=== PATIENT | male | born 1945 | race Caucasian/White ===

== ENCOUNTER 2020-11-02 05:34 | Outpatient (CLI) | payer MEDICARE, OTHER ==
[~2020-11-02] VITALS: Ht 175.3 cm; Wt 111.6 kg
[2020-11-02] MEDS ORDERED: FINA5TAB6 PO (10:18)
[2020-11-02] MEDS ORDERED: SIMV10TA26 PO (10:18)
== END 2020-11-02 13:39 | disposition home or self-care (01) ==
LOC: PREOP 05:34
PROVIDERS: ATTEND Surgery
DX: Z01.818 Encounter for other preprocedural examination (principal)

== ENCOUNTER 2020-11-09 10:09 | Day surgery (SDC) | payer MEDICARE, OTHER ==
[~2020-11-09] VITALS: Ht 175.3 cm; Wt 111.6 kg
[2020-11-09] VITALS (14 sets, daily range): BP systolic 117–161; BP diastolic 62–80
[~2020-11-09 10:09] MED LIST: FINA5TAB6 PO; LACTATED RINGERS 0 ML IV ONE; NS IV 500 ML 500 ML ONE; SIMV10TA26 PO
[2020-11-09] MEDS ORDERED: LIDOCAINE JELLY 2% 6 ML SYRINGE MM PRN (10:30)
[2020-11-09] MEDS ORDERED: NS IV 500 ML 500 ML IV PRN (10:30)
[2020-11-09] MEDS ORDERED: fentaNYL INJ 100 MCG/2 ML AMP IVP ONE (10:30)
[2020-11-09] MEDS ORDERED: MIDAZOLAM 5 MG/5 ML (VERSED) VIAL IV ONE (10:30)
[2020-11-09] MEDS ORDERED: CHOL500049 PO (10:38)
[2020-11-09] MEDS ORDERED: OMEG-109 PO (10:38)
[2020-11-09] MEDS ORDERED: VITA1CAP PO (10:38)
[2020-11-09] MEDS ORDERED: MIDAZOLAM 5 MG/5 ML (VERSED) VIAL ONE ×2 (10:45)
[2020-11-09] MEDS ORDERED: fentaNYL INJ 100 MCG/2 ML AMP ONE ×2 (10:46)
[2020-11-09] MEDS ORDERED: LIDOCAINE JELLY 2% 6 ML SYRINGE ONE (10:46)
--- NOTE | 2020-11-09 10:46 | Progress Note-Pre Operative ---
Pre-Operative Progress Note H&P Reviewed The H&P was reviewed, patient examined and no changes noted. Date Seen by Provider: November 09, 2020 Time Seen by Provider: 10:30 Date H&P Reviewed: November 09, 2020 Time H&P Reviewed: 10:30 Pre-Operative Diagnosis: screening o HUBERT ERICKSON MD November 09, 2020 10:46
--- NOTE | 2020-11-09 10:47 | Discharge Inst-Surgical ---
D/C Lap Instructions-GEORGINA Follow Up Appt in 2 weeks Activity as tolerated High Fiber Diet 25g or more per day Avoid Alcohol, Caffeine, Spicy [place] and Acid foods. Drink 64 fluid oz or more of fluids per day. Symptoms to Report: Fever over 101 degree F, Nausea/Vomiting If any problems/questions: Contact your physician or go to Emergency Room HUBERT ERICKSON MD November 09, 2020 10:47
[2020-11-09] MEDS ORDERED: morphine INJ 10 MG/ML 1ML (SYR OR VIAL) IVP PRN ×2 (11:00)
[2020-11-09] MEDS ORDERED: HYDROcodone/APAP 5 MG/325 MG (LORTAB) TAB PO PRN (11:00)
[2020-11-09] MEDS ORDERED: ONDANSETRON 4 MG/2 ML (SDV) Z0FRAN IVP PRN (11:00)
[2020-11-09] MEDS ORDERED: ACETAMINOPHEN 325 MG TABLET PO PRN (11:00)
--- NOTE | 2020-11-09 11:22 | Progress Note-Post Operative ---
Post-Operative Progess Note Surgeon (s)/Game Preserve Manager (s) Surgeon HUBERT ERICKSON MD Game Preserve Manager: none Pre-Operative Diagnosis screening colo Post-Operative Diagnosis mild chronic stage 2 ext and int hemorrhoids, HP rectum and sigmoid(1-2mm). Procedure & Operative Findings Date of Procedure 11/09/20 Procedure Performed/Findings colonoscopy with forcep polypectomy Anesthesia Type cs Estimated Blood Loss Estimated blood loss (mL): minimal Specimens/Packing Specimens Removed polyp sigmoid and rectum HUBERT ERICKSON MD November 09, 2020 11:22
--- NOTE | 2020-11-09 11:26 | Conscious Sedation/ASA ---
Conscious Sedation Pre-Proced Time 10:30 ASA Score 2 For ASA 3 and 4: Consider anesthesia and medical clearance. Also, for patients with a history of failed moderate sedation consider anesthesia. Airway Lungs Heart ASA score ASA 1: a normal healthy patient ASA 2: a patient with a mild systemic disease (mid diabetes, controlled hypertension, obesity ASA 3: a patient with a severe systemic disease that limits activity (angina, COPD, prior Myocardial infarction) ASA 4: a patient with an incapacitating disease that is a constant threat to life (CHF, renal failure) ASA 5: a moribund patient not expected to survive 24 hrs. (ruptured aneurysm) ASA 6: a declared brain- patient whose organs are being harvested. For emergent operations, add the letter E after the classification Mallampati Classification Grade 2 Sedation Plan Analgesia, Amnesia, Plan communicated to team members, Discussed options with patient/fam, Discussed risks with patient/fam The patient is an appropriate candidate to undergo the planned procedure, sedation, and anesthesia. The patient immediately re-assessed prior to indication. HUBERT ERICKSON MD November 09, 2020 11:26
--- NOTE | 2020-11-09 16:29 | OPERATIVE REPORT ---
DATE OF SERVICE: 11/09/2020 ATTENDING PRIMARY CARE PHYSICIAN: Hoda Charlton APRN PREOPERATIVE DIAGNOSIS: Screening colonoscopy. POSTOPERATIVE DIAGNOSES: Mild chronic stage II external and internal hemorrhoids, small hyperplastic polyp of the rectum and of the sigmoid colon. PROCEDURES PERFORMED: Colonoscopy with biopsy and electrocautery. SURGEON: Hubert Erickson MD. ANESTHESIA: Conscious sedation. ESTIMATED BLOOD LOSS: Minimal. FINDINGS: Mild chronic stage II external and internal hemorrhoids, small hyperplastic polyp of the rectum and of the sigmoid colon. DISPOSITION: The patient tolerated the procedure well. INDICATIONS FOR PROCEDURE: The patient is a 75-year-old male, who was referred over to us for screening colonoscopy. His last one was greater than 10 years ago and he believes this to be normal. The patient states that he is not having any major issues with diarrhea nor constipation as well as no red blood per rectum nor any dark tarry stools. He also does not report any family history of colon cancer. DESCRIPTION OF PROCEDURE: The patient was brought to the endoscopy suite and laid in the left lateral decubitus position. After adequate IV pain and sedative medications and conscious sedation anesthesia, a digital rectal examination was performed. Mild chronic stage II external and internal hemorrhoids were identified, which were not actively edematous nor inflamed and no bleeding. Normal sphincter tone was felt and there were no palpable masses. Prostate gland was palpable and appeared normal. The endoscope was then intubated and the anus and rectum gently insufflated. At the rectum, a small hyperplastic polyp 2 mm in size was identified. This was biopsied and destroyed using forceps and electrocautery with visualization. At the sigmoid colon, a similar hyperplastic polyp was identified and removed. The endoscope was then advanced through the remainder of the descending, transverse and ascending colon to the cecum. These segments were normal. The endoscope was then slowly withdrawn while taking a second look and suctioning of residual air with no additional findings. The patient tolerated the procedure well. We will recommend a high fiber diet with the fiber supplementation and should equal or exceed 30 grams daily as well as significant amounts of water to promote soft stools on a daily basis. These are likely hyperplastic polyps and we will confirm this on pathology and if they are, he does not need another colonoscopy for another 10 years. Job ID: [id number] DocumentID: [id number] Dictated Date: 11/09/2020 11:17:53 Sheep Shearer Date: 11/09/2020 16:27:49 Dictated By: HUBERT ERICKSON MD
== END 2020-11-09 12:15 | disposition home or self-care (01) ==
LOC: ENDO 10:09
PROVIDERS: ATTEND Surgery
DX: Z12.11 Encounter for screening for malignant neoplasm of colon (principal); K63.5 Polyp of colon; K62.1 Rectal polyp; K64.4 Residual hemorrhoidal skin tags; K64.1 Second degree hemorrhoids; F17.220 Nicotine dependence, chewing tobacco, uncomplicated; Z79.899 Other long term (current) drug therapy

== ENCOUNTER → 2021-03-02 | Outpatient (CLI) | payer MEDICARE ==
[~2021-03-02] MED LIST changes: +CHOL500049 PO; -LACTATED RINGERS 0 ML IV ONE; -NS IV 500 ML 500 ML ONE; +OMEG-109 PO; +VITA1CAP PO
--- NOTE | 2021-03-02 12:18 | Diagnostic Imaging Report ---
PROCEDURE: MR imaging cervical spine without contrast. TECHNIQUE: Multiplanar, multisequence MR imaging of the cervical spine was performed without contrast. INDICATION: Neck pain and right upper extremity paresthesia. Cervical spinal curvature and alignment are unremarkable. There is desiccation of cervical disks with narrowing of the C3-C4, C5-C6 and C6-C7 levels. There is slight annular bulging of the C3-C4 disc without significant spinal stenosis. At C4-C5 there is mild annular disc bulging and endplate spurring with mild associated degenerative facet arthropathy. At C5-C6 there is right paramedian disc protrusion resulting in mild spinal and moderate right lateral recess stenosis with moderate right neural foraminal stenosis. There is also diffuse disc bulging and endplate spurring at the C6-C7 level. No abnormal signal is seen within the cervical spinal cord. No marrow edema is seen to indicate a fracture. IMPRESSION: Right paramedian C5-C6 disc protrusion resulting in mild spinal with moderate right lateral recess and neural foraminal stenosis. Dictated by: Dictated on workstation # [id number]
== END ==
LOC: RAD 11:00
PROVIDERS: ATTEND Orthopaedic Surgery
DX: M48.02 Spinal stenosis, cervical region (principal); M54.12 Radiculopathy, cervical region
CPT/HCPCS: 72141